=== PATIENT | male | born 1950 | race Caucasian/White ===

== ENCOUNTER 2023-11-21 16:28 | Inpatient (IN) | payer MEDICARE ==
[~2023-11-21] VITALS: Ht 180.3 cm; Wt 79.8 kg
[2023-11-21] MEDS: SODIUM CHLORIDE 0.9% 1,000 ML IV ONE (17:06)
[2023-11-21 17:07] LABS: BASOPHILS % 0.4 % (0.0-2.0); EOSINOPHILS % 1.6 % (0.0-5.0); HEMATOCRIT. 32.9 % (42.0-52.0); HEMOGLOBIN. 10.8 g/dL (14.0-18.0); LYMPHOCYTES % 12.8 % (20.0-50.0); MEAN CORPUSCULAR HEMOGLOBIN 32.9 pg (28.0-32.0); MEAN CORPUSCULAR VOLUME 99.8 fL (80.0-94.0); MEAN PLATELET VOLUME 9.1 fl (7.4-10.4); MONOCYTES % 9.3 % (2.0-8.0); NEUTROPHILS % 75.9 % (40.0-76.0); PLATELET 116 x1000/uL (130-400); WHITE BLOOD COUNT 8.1 x1000/uL (4.5-11.0)
[2023-11-21 17:14] LABS: CHLORIDE 121 mEq/L (98-107); POTASSIUM 3.9 mEq/L (3.5-5.1); SODIUM 154 mEq/L (136-145)
[2023-11-21 17:15] LABS: CALCIUM 8.2 mg/dL (8.7-10.4); CARBON DIOXIDE 28 mEq/L (21-32)
[2023-11-21 17:20] LABS: CREATININE 1.8 mg/dL (0.6-1.3); GLUCOSE 110 mg/dL (70-105); UREA NITROGEN BLOOD 55 mg/dL (9-23)
[2023-11-21 17:21] LABS: AMMONIA < 17 uMol/L (<32); TROPONIN I HIGH SENSITIVITY 5 ng/L (3.0-53)
[2023-11-21 17:22] LABS: ACETAMINOPHEN < 2 ug/mL (10-30); CREATINE KINASE 83 IU/L (46-171)
[2023-11-21 17:23] LABS: ETHANOL BLOOD < 10 mg/dL (<10)
[2023-11-21 17:25] LABS: THYROID STIMULATING HORMONE 1.86 uIU/mL (0.55-4.78)
[2023-11-21 17:30] LABS: D-DIMER 7.13 mg/L FEU (<0.50); INR 1.2; PROTHROMBIN TIME 12.9 sec (9.6-11.0)
[2023-11-21] MEDS: VALPROIC ACID 250MG CAPSULE PO ONE (20:43)
[2023-11-21] MEDS ORDERED: VALPROATE SODIUM 500 MG in SODIUM CHLORIDE 0.9% 100 ML IV SCH (20:45)
[2023-11-21] MEDS: VALPROATE SODIUM 250MG/5ML UDC PO NR (21:00)
[2023-11-21] MEDS ORDERED: LORAZEPAM 2MG/ML INJ IV PRN (22:15)
[2023-11-21] MEDS ORDERED: NITROGLYCERIN 0.4MG TABLET SL SL PRN (22:15)
[2023-11-21] MEDS ORDERED: MAGNESIUM/ALUMINUM HYDROXIDE/SIMETHICONE 30ML UDC PO PRN (22:15)
[2023-11-21] MEDS ORDERED: ONDANSETRON HCL 4MG/2ML INJ IV PRN (22:15)
[2023-11-21] MEDS ORDERED: GUAIFENESIN 200MG/10ML SUGAR FREE UDC PO PRN (22:15)
[2023-11-21] MEDS ORDERED: DOCUSATE SODIUM 100MG CAPSULE PO PRN (22:15)
[2023-11-21] MEDS ORDERED: ACETAMINOPHEN 325MG TABLET PO PRN ×2 (22:15)
[2023-11-21] MEDS ORDERED: CLONIDINE 0.1MG TABLET PO PRN (22:15)
[2023-11-21] MEDS ORDERED: ZOLPIDEM TARTRATE 5MG TABLET PO PRN (22:39)
[2023-11-21 23:05] LABS: IRON 39 ug/dL (65-175)
[2023-11-21 23:06] LABS: TRIGLYCERIDE 77 mg/dL (0-150)
[2023-11-21 23:07] LABS: LDL CHOLESTEROL 32 mg/dL (5-100)
[2023-11-21 23:08] LABS: CHOLESTEROL 64 mg/dL (<200); HDL CHOLESTEROL 26 mg/dL (>55); TOTAL IRON BINDING CAPACITY 185 ug/dl (250-425)
[2023-11-21 23:12] LABS: FOLIC ACID (FOLATE) SERUM 9.86 ng/mL (>5.38); VITAMIN B12 SERUM 1208 pg/mL (211-911)
[2023-11-21 23:13] LABS: T4 FREE 0.82 ng/dL (0.89-1.76)
[2023-11-21] MEDS ORDERED: IPRATROPIUM/ALBUTEROL 0.5-3(2.5)MG/3ML NEB NEB PRN (23:45)
[2023-11-21] MEDS ORDERED: KETOROLAC 15MG/ML VIAL IV PRN (23:45)
[2023-11-22] MEDS: MEROPENEM 1G/100ML 100 ML IV SCH ×3 (01:13→17:00)
[2023-11-22] MEDS: VALPROIC ACID 250MG CAPSULE PO SCH (06:54)
[2023-11-22] MEDS: ENOXAPARIN 40MG/0.4ML SYR SUBCUT SCH (09:02)
[2023-11-22 09:34] LABS: BASOPHILS % 0.5 % (0.0-2.0); DIFFERENTIAL COMMENT 0; EOSINOPHILS % 2.2 % (0.0-5.0); HEMATOCRIT. 38.6 % (42.0-52.0); HEMOGLOBIN. 12.4 g/dL (14.0-18.0); LYMPHOCYTES % 15.6 % (20.0-50.0); MEAN CORPUSCULAR HGB CONC 32.2 g/dL (31.0-37.0); MEAN CORPUSCULAR VOLUME 102.5 fL (80.0-94.0); MEAN PLATELET VOLUME 9.5 fl (7.4-10.4); MONOCYTES % 8.8 % (2.0-8.0); NEUTROPHILS % 72.9 % (40.0-76.0); PLATELET 117 x1000/uL (130-400); RED BLOOD CELL COUNT 3.77 mill/uL (4.7-6.1); RED CELL DISTRIBUTION WIDTH 15.9 % (11.6-14.6); WHITE BLOOD COUNT 8.2 x1000/uL (4.5-11.0)
[2023-11-22 09:37] LABS: CALCIUM 8.9 mg/dL (8.7-10.4); CARBON DIOXIDE 29 mEq/L (21-32); CHLORIDE 120 mEq/L (98-107); POTASSIUM 4.1 mEq/L (3.5-5.1); SODIUM 153 mEq/L (136-145)
[2023-11-22 09:42] LABS: CREATININE 1.3 mg/dL (0.6-1.3); GLUCOSE 93 mg/dL (70-105)
[2023-11-22 09:43] LABS: UREA NITROGEN BLOOD 38 mg/dL (9-23)
[2023-11-22 10:18] VITALS: BP 116/72; PULSE 84; RESP 18; TEMP 36.114; O2SAT 100
[2023-11-22 11:00] VITALS: BP 116/72; PULSE 64; RESP 18; TEMP 36.3068
[2023-11-22 11:29] LABS: CREATINE KINASE MB FRACTION 1.5 ng/mL (0.5-3.6)
[2023-11-22] MEDS: ASPIRIN 81MG EC TABLET PO SCH (11:49)
[2023-11-22] MEDS: FAMOTIDINE 20MG TABLET PO SCH (11:49)
[2023-11-22] MEDS: ZINC SULFATE 220 MG ( 50 ) CAPSULE PO SCH (11:49)
[2023-11-22] MEDS: LEVETIRACETAM 500MG TABLET PO SCH (11:49)
[2023-11-22] MEDS: ASCORBIC ACID 500 MG TABLET PO SCH (11:51)
[2023-11-22 12:00] VITALS: BP 115/67; PULSE 66; RESP 20; TEMP 36.3918; O2SAT 100
[2023-11-22] MEDS ORDERED: VALP250S22 GT (14:06)
[2023-11-22] MEDS ORDERED: AMLO10TA80 MT (14:06)
[2023-11-22] MEDS ORDERED: MEMA5TAB42 MT (14:06)
[2023-11-22] MEDS ORDERED: LABE100T9 MT (14:06)
[2023-11-22] MEDS ORDERED: CITA10SO PO (14:06)
[2023-11-22] MEDS ORDERED: ATOR40TA70 MT (14:06)
[2023-11-22 16:00] VITALS: BP 115/58; PULSE 78; RESP 20; TEMP 36.28068; O2SAT 100
[2023-11-22 19:25] LABS: CREATINE KINASE MB FRACTION 1.1 ng/mL (0.5-3.6)
[2023-11-22 20:00] VITALS: BP 132/62; PULSE 57; RESP 18; TEMP 36.44736; O2SAT 100
[2023-11-23] VITALS: BP 135/62; PULSE 53; RESP 18; TEMP 36.44736; O2SAT 96
[2023-11-23 04:06] VITALS: BP 131/55; PULSE 55; RESP 18; TEMP 36.50292; O2SAT 100
[2023-11-23 08:00] VITALS: BP 143/64; PULSE 62; RESP 18; TEMP 36.72516; O2SAT 100
[2023-11-23 12:00] VITALS: BP 143/69; PULSE 60; RESP 20; TEMP 37.00296; O2SAT 100
[2023-11-23 16:00] VITALS: BP 102/56; PULSE 53; RESP 20; TEMP 36.72516; O2SAT 100
[2023-11-23 20:00] VITALS: BP 122/54; PULSE 69; RESP 20; TEMP 36.55848; O2SAT 100
[2023-11-23 20:54] LABS: CLARITY URINE CLEAR (CLEAR); COLOR URINE YELLOW (YELLOW); GLUCOSE URINE NEGATIVE (NEGATIVE); KETONES URINE NEGATIVE (NEGATIVE); LEUKOCYTE ESTERASE URINE NEGATIVE (NEGATIVE); NITRITE URINE NEGATIVE (NEGATIVE); OCCULT BLOOD URINE NEGATIVE (NEGATIVE); PROTEIN URINE TRACE (NEGATIVE); SPECIFIC GRAVITY URINE 1.018 (1.005-1.030)
[2023-11-23 21:09] LABS: *AMPHETAMINES SCREEN URINE NEGATIVE (NEGATIVE); *BARBITURATES SCREEN URINE NEGATIVE (NEGATIVE); *BENZODIAZEPINES SCREEN URINE NEGATIVE (NEGATIVE)
[2023-11-23 21:10] LABS: *COCAINE SCREEN URINE NEGATIVE (NEGATIVE); CANNABINOID URINE SCREEN NEGATIVE (NEGATIVE); ECSTASY MDMA SCREEN URINE NEGATIVE (NEGATIVE); METHADONE URINE SCREEN NEGATIVE (NEGATIVE); OPIATES URINE SCREEN NEGATIVE (NEGATIVE); PHENCYCLIDINE URINE SCREEN NEGATIVE (NEGATIVE)
[2023-11-23 22:21] LABS: BACTERIA URINE TRACE; RBC URINE NONE SEEN /hpf (0-2); SQUAMOUS EPITHELIAL CELL URINE RARE /lpf (RARE/1+); WBC URINE 0-2 /hpf (0-2)
[2023-11-24] VITALS: BP 104/49; PULSE 52; RESP 19; TEMP 36.33624; O2SAT 97
[2023-11-24 04:00] VITALS: BP 116/51; PULSE 47; RESP 18; TEMP 36.3918; O2SAT 97
[2023-11-24 08:03] VITALS: BP 141/61; PULSE 47; RESP 18; TEMP 36.78072; O2SAT 95
[2023-11-24 15:52] VITALS: BP 135/65; PULSE 51; RESP 19; TEMP 36.83628; O2SAT 98
[2023-11-24 20:00] VITALS: BP 135/64; PULSE 65; RESP 19; TEMP 36.44736; O2SAT 99
[2023-11-25] VITALS: BP 140/72; PULSE 56; RESP 19; TEMP 36.89184; O2SAT 100
[2023-11-25 04:00] VITALS: BP 123/69; PULSE 62; RESP 19; TEMP 36.33624; O2SAT 92
[2023-11-25 08:04] VITALS: BP 137/63; PULSE 50; RESP 20; TEMP 36.6696; O2SAT 95
[2023-11-25] MEDS ORDERED: KEPP500 PO (08:58)
[2023-11-25 11:56] VITALS: BP 140/62; PULSE 49; RESP 18; TEMP 36.78072; O2SAT 100
[2023-11-25 16:04] VITALS: BP 112/81; PULSE 54; RESP 19; TEMP 36.89184; O2SAT 97
[2023-11-25 20:00] VITALS: BP 123/84; PULSE 67; RESP 18; TEMP 36.55848; O2SAT 95
[2023-11-26] VITALS: BP 96/74; PULSE 53; RESP 18; TEMP 36.72516; O2SAT 96
[2023-11-26 04:00] VITALS: BP 123/55; PULSE 52; RESP 18; TEMP 36.50292; O2SAT 97
[2023-11-26 08:09] VITALS: BP 130/59; PULSE 43; RESP 20; TEMP 36.61404; O2SAT 99
[2023-11-26 12:02] VITALS: BP 138/62; PULSE 76; RESP 19; TEMP 36.83628; O2SAT 96
[2023-11-26 15:56] VITALS: BP 106/45; PULSE 53; RESP 20; TEMP 36.6696; TEMP 36.66960; O2SAT 97
[2023-11-26 17:00] VITALS: BP 129/75; PULSE 75; TEMP 97.6; O2SAT 97
== END 2023-11-26 18:55 | disposition home health service (06) | DRG 100 ==
LOC: ER 16:28 → EDBEDREQ 21:44 → EDBEDREQTM 21:44 → 5WST 11-22 04:39 → 7WST 11-22 10:36
PROVIDERS: ADMIT Internal Medicine; ATTEND Internal Medicine
DX: G40.909 Epilepsy, unspecified, not intractable, without status epilepticus (principal); G92.8 Other toxic encephalopathy; L89.313 Pressure ulcer of right buttock, stage 3; N17.0 Acute kidney failure with tubular necrosis; E87.0 Hyperosmolality and hypernatremia; D63.8 Anemia in other chronic diseases classified elsewhere; F02.80 Dementia in other diseases classified elsewhere, unspecified severity, without behavioral disturbance, psychotic disturbance, mood disturbance, and anxiety; G30.9 Alzheimer's disease, unspecified; I10 Essential (primary) hypertension; R62.7 Adult failure to thrive; R79.89 Other specified abnormal findings of blood chemistry; Z88.8 Allergy status to other drugs, medicaments and biological substances
CPT/HCPCS: 80061; 80048; 80307; 80329; 80320; 82140; 82550; 82607; 82746; 83880; 84439; 83540; 83550; 83605; 84443; 80165; 85025; 85379; 85610; 86850; 86900; 86901; 87040; 84484; 36415; 71045; 70450; 93970; 76770; 99285; J2185; J7030; 70551; 80305; 81003; 82553; 83735; 84100; 93306; 97162; 97535; J1650; J3490; J7050; G0480